=== PATIENT | male | born 1995 | race Caucasian/White ===

== ENCOUNTER 2018-09-04 20:38 | Inpatient (IN) | payer OTHER ==
[~2018-09-04] VITALS: Ht 180.3 cm; Wt 84.8 kg
[2018-09-04 20:45] VITALS: BP 135/66
--- NOTE | 2018-09-04 20:49 | NUR ---
PT TAKEN TO BED 3
--- NOTE | 2018-09-04 20:55 | NUR ---
PT BIB GIRLFRIEND C/O RECTAL BLEEDING. PT STATES INTERMITTENT RECTAL BLEEDING X4 DAYS, BRIGHT RED, BLEEDING CONTROLLED AT THIS TIME. PT STATES PAIN IS 10/10 CONSTANT AND SHARP. LBM: 09/03/18, WNL. +NAUSEA, +VOMITING. PT IN BED; BED IN LOWER LOCKED POSITION. PENDING ER MD MENA. WILL CONTINUE TO MONITOR. PMH: DIVERTICULITIS RX: PREPERATION H W/O RELIEF
--- NOTE | 2018-09-04 21:13 | NUR ---
Dr. Leung evaluating patient at bedside.
[2018-09-04 21:31] LABS: BASOPHILS % (AUTO) 0.5 % (0.0-2.0); EOSINOPHILS # (AUTO) 0.1 K/uL (0-0.4); EOSINOPHILS % (AUTO) 0.9 % (0.0-4.0); HEMOGLOBIN 14.6 g/dL (12.0-18.0); LYMPHOCYTES # (AUTO) 2.8 K/uL (2.0-11.5); LYMPHOCYTES % (AUTO) 27.6 % (20.5-51.1); MEAN CORPUSCULAR HEMOGLOBIN 32 pg (27-31); MEAN CORPUSCULAR HGB CONC 34 g/dL (33-37); MEAN CORPUSCULAR VOLUME 94.3 fL (80-94); MONOCYTES # (AUTO) 0.6 K/uL (0.8-1.0); NEUTROPHILS # (AUTO) 6.6 K/uL (1.8-7.7); PLATELET COUNT (AUTO) 259 K/uL (140-450); RED BLOOD CELL COUNT(AUTO) 4.56 MIL/uL (4.20-6.10); RED CELL DISTRIBUTION WIDTH 14.2 % (11.6-13.7); WHITE BLOOD COUNT (AUTO) 10.1 K/uL (4.8-10.8)
[2018-09-04 21:41] LABS: ANION GAP 9.2 (8-16); CREATININE 1.1 mg/dL (0.7-1.3); POTASSIUM 4.2 mmol/L (3.5-5.1)
--- NOTE | 2018-09-04 21:45 | NUR ---
PT TAKEN TO CT VIA GURNEY BY TECH.
[2018-09-04 21:47] LABS: ALBUMIN 3.9 g/dL (3.4-5.0); TOTAL BILIRUBIN 0.2 mg/dL (0.0-1.0)
[2018-09-04] MEDS ORDERED: MORPHINE SULFATE 4 MG/ML SYR IVP ONE ×2 (21:50→22:35)
--- NOTE | 2018-09-04 21:52 | NUR ---
PT RETURN FROM CT
--- NOTE | 2018-09-04 22:00 | NUR ---
IV START: L AC 20G, FLUSHED WELL W/O RESISTANCE. NO REDNESS OR SWELLING NOTED TO SIGHT. TRANSPARENT DRESSING APPLIED. PT TOLERATED WELL.
[2018-09-04] MEDS ORDERED: NACL 0.9% 1,000 ML IV ONE (22:35)
[2018-09-04] MEDS ORDERED: DENIES HOME MEDS (23:14)
--- NOTE | 2018-09-04 23:22 | NUR ---
Admited to Med-Surg. Patient went to room 119 via wheelchair by RN, patient pain 02/14, floor nurse aware. Belongings list completed. Report to SOFI Leyva and SOFI Wayne.
--- NOTE | 2018-09-04 23:30 | NUR ---
PT ARRIVED AT UNIT VIA WHEELCHAIR, PT AMBULATED TO BED, TOLERATED WELL, PT ON ROOM AIR, NO SOB, NOTED, IV TO L AC 20G PATENT, INTACT, SL. SKIN INTACT, WARM AND DRY TO TOUCH. ALL BELONGING WITH SECURITY, ORIENT PT TO ROOM, MRSA SWAB TAKEN, INITIAL ASSESSMENT DONE, ALL SAFETY PRECAUTION MET. WILL CONTINUE TO MONITOR.
[2018-09-04] MEDS ORDERED: MAG SULF 2000 MG/WATER PREMIX 50 ML IV PRN (23:45)
[2018-09-04] MEDS ORDERED: guaiFENesin DM 200/20 MG-10 ML 10 ML UDC PO PRN (23:45)
[2018-09-04] MEDS ORDERED: MAGNESIUM OXIDE 400 MG TAB PO PRN (23:45)
[2018-09-04] MEDS ORDERED: HYDROcodone/APAP 5/325 MG 1 TAB TAB PO PRN ×2 (23:45)
[2018-09-04] MEDS ORDERED: SODIUM PHOSPHATE 118 ML ENEM RC PRN (23:45)
[2018-09-04] MEDS ORDERED: BISACODYL 10 MG SUPP RC PRN (23:45)
[2018-09-04] MEDS ORDERED: cloNIDine 0.1 MG TAB PO PRN (23:45)
[2018-09-04] MEDS ORDERED: MORPHINE SULFATE 2 MG/ML SYR IVP PRN (23:45)
[2018-09-04] MEDS ORDERED: ALBUTEROL 0.083% 2.5 MG/3 ML NEBU INH PRN (23:45)
[2018-09-04] MEDS ORDERED: diphenhydrAMINE 50 MG/ML VIAL IVP PRN (23:45)
[2018-09-04] MEDS ORDERED: ONDANSETRON 4 MG/2 ML VIAL IVP PRN (23:45)
[2018-09-04] MEDS ORDERED: ACETAMINOPHEN 325 MG TAB PO PRN (23:45)
[2018-09-04] MEDS ORDERED: ZOLPIDEM 5 MG TAB PO PRN (23:45)
[2018-09-04] MEDS ORDERED: POTASSIUM CHLORIDE 40 MEQ, LIDOCAINE 1% 25 MG in NACL 0.9% 250 ML IV PRN (23:45)
[2018-09-04] MEDS ORDERED: IPRATROPIUM 0.02% 0.5 MG/2.5 ML NEBU INH PRN (23:45)
[2018-09-04] MEDS ORDERED: POTASSIUM CHLORIDE 10 MEQ TABER PO PRN (23:45)
[2018-09-04] MEDS ORDERED: DOCUSATE SODIUM 250 MG GELCAP PO PRN (23:45)
[2018-09-04] MEDS ORDERED: ACETAMINOPHEN 650 MG SUPP RC PRN (23:45)
[2018-09-05] VITALS: BP 138/75
[2018-09-05] MEDS: HYDROmorphone 1 MG/ML AMP IVP PRN ×5 (00:26→21:56)
--- NOTE | 2018-09-05 00:26 | NUR ---
PT C/O LOWER ABD AND ANUS PAIN, 0/10. DILAUDID GIVEN PRN ORDERED. PT TOLERATED WELL. WILL CONTINUE TO MONITOR.
--- NOTE | 2018-09-05 02:21 | NUR ---
PT AWAKE. NO S/S OF ANY DISCOMFORT. DENIES PAIN. RESPIRATION EVEN AND UNLABORED.
--- NOTE | 2018-09-05 04:31 | NUR ---
PT SLEEPING IN BED. NO SOB OR ANY RESPIRATORY DISTRESS NOTED. CALL LIGHT WITHIN REACH. WILL CONTINUE TO MONITOR.
[2018-09-05 06:30] LABS: BASOPHILS # (AUTO) 0.1 K/uL (0.00-0.22); BASOPHILS % (AUTO) 0.8 % (0.0-2.0); EOSINOPHILS # (AUTO) 0.2 K/uL (0-0.4); HEMATOCRIT 42.9 % (36-52); HEMOGLOBIN 14.6 g/dL (12.0-18.0); LYMPHOCYTES # (AUTO) 2.6 K/uL (2.0-11.5); LYMPHOCYTES % (AUTO) 32.7 % (20.5-51.1); MEAN CORPUSCULAR HEMOGLOBIN 32 pg (27-31); MEAN CORPUSCULAR HGB CONC 34 g/dL (33-37); MEAN CORPUSCULAR VOLUME 94.1 fL (80-94); MONOCYTES # (AUTO) 0.5 K/uL (0.8-1.0); MONOCYTES % (AUTO) 6.7 % (1.7-9.3); NEUTROPHILS # (AUTO) 4.5 K/uL (1.8-7.7); NEUTROPHILS % (AUTO) 57.8 % (42.2-75.2); PLATELET COUNT (AUTO) 226 K/uL (140-450); RED BLOOD CELL COUNT(AUTO) 4.55 MIL/uL (4.20-6.10); RED CELL DISTRIBUTION WIDTH 14.1 % (11.6-13.7); WHITE BLOOD COUNT (AUTO) 7.8 K/uL (4.8-10.8)
--- NOTE | 2018-09-05 07:29 | NUR ---
ENDORSED PT TO DAY SHIFT NURSE TRAE FARAH, PT STABLE, NO DISTRESS NOTED, CALL LIGHT WITHIN REACH.
--- NOTE | 2018-09-05 07:30 | NUR ---
RECEIVED REPORT FROM COMPENSATION SUPERVISOR NURSE EDUARDO AT BEDSIDE FOR CONTINUITY OF CARE. PT IN STABLE CONDITION. RESPIRATIONS EVEN AND UNLABORED. ROOM AIR. IV INTACT AND PATENT. SAFETY MEASURES IN PLACE. CALL LIGHT AT BEDSIDE. BED IN LOW POSITION. WILL CONTINUE TO MONITOR.
--- NOTE | 2018-09-05 07:58 | NUR ---
PATIENT HAS BEEN SCREENED AND CATEGORIZED MODERATE NUTRITION RISK. PATIENT WILL BE SEEN WITHIN 3-5 DAYS OF ADMISSION. 09/07/18CONSTANCE MAJ[address]
[2018-09-05 08:00] VITALS: BP 119/67
--- NOTE | 2018-09-05 08:30 | NUR ---
YAYA BARILLAS DR. HYDROCORTISONE SUPPOSITORY.
[2018-09-05] MEDS ORDERED: HYDROCORTISONE 100 MG/60 ML RC ONE (08:50)
[2018-09-05] MEDS ORDERED: HYDROCORTISONE SUPPOSITORY 25 MG SUPP RC SCH (09:30)
--- NOTE | 2018-09-05 09:41 | NUR ---
GAVE ANCORT HS SUPPOSITORY, PT TOLERATED WELL. WILL CONTINUE TO MONITOR.
--- NOTE | 2018-09-05 11:20 | NUR ---
PT LYING IN BED IN STABLE CONDITION. RESPIRATIONS EVEN AND UNLABORED. FRIEND AT BEDSIDE. BED IN LOW POSITION. CALL LIGHT AT BEDSIDE. WILL CONTINUE TO MONITOR.
[2018-09-05] MEDS: DEXT 5% /NACL 0.9% 1,000 ML IV SCH (12:20)
[2018-09-05] MEDS: SENNA 8.6 MG TAB PO SCH ×2 (13:14→17:57)
[2018-09-05] MEDS: LORazepam 2 MG/ML VIAL IVP PRN (13:15)
--- NOTE | 2018-09-05 13:15 | NUR ---
GAVE ATIVAN 0.5 MG FOR ANXIETY, COLACE FOR STOOL SOFTENER. PT TOLERATED WELL.
[2018-09-05] MEDS ORDERED: BOWEL EVACUANT DRINK 4,000 ML PDS PO SCH (15:00)
[2018-09-05 16:00] VITALS: BP 126/71
--- NOTE | 2018-09-05 19:19 | NUR ---
RECEIVED PT FROM AM SHIFT NURSE AT BEDSIDE. PT A,A0 X4. PT AMBULATORY. PT ABLE TO MAKE NEEDS KNOWN. WITH GOLYTELY AT BEDISDE ALMOST EMPTY. PT HAS NO BM YET AT THIS TIME. PT WAS GIVEN PAIN MED AT 1751 BECAUSE OF RECTAL PAIN. W/ D5NS AT 70 ML/HR L AC G 20 INFUSING WELL.FRIEND AT BEDSIDE. BED AT LOWEST POSITION, POC REVIEWED. CALL LIGHT W/IN EASY REACH.
--- NOTE | 2018-09-05 20:04 | NUR ---
TALKED TO DR. ATWOOD FOR DR. SKY.DR. ATWOOD ORDERED TO FINISH UP THE GOLYTELY ANOTHER 1999ML
[2018-09-05] MEDS ORDERED: BOWEL EVACUANT DRINK 4,000 ML PDS PO ONE (20:25)
[2018-09-05] MEDS: LACTULOSE 20 GM/30 ML UDC PO SCH (20:43)
--- NOTE | 2018-09-05 20:43 | NUR ---
ADMINISTERED MEDS AND STOOL SOFTENER. PT INFORMED TO TAKE THE GOLYTELY 2000ML ORDERED BY DR. ATWOOD.PT REQUESTED TO DRINK IT LATER. EXPLAINED THE RISKS AND BENEFITS.
--- NOTE | 2018-09-05 20:48 | NUR ---
PT HAD A LARGE BOWEL MVT. CLEAR, LIQUID IN FORM.
[2018-09-05] MEDS ORDERED: MAGNESIUM CITRATE 300 ML BTL PO SCH (21:00)
--- NOTE | 2018-09-05 21:57 | NUR ---
PT C/O PAIN ON RECTUM 02/14, WILL ADMINISTER PAIN MEDS ORDERED PRN
--- NOTE | 2018-09-05 23:01 | NUR ---
PT HAD A TOTAL OF 4 BOWEL MVTS OF NOW. CLEAR LIQUID IN FORM
[2018-09-06] VITALS: BP 111/64
--- NOTE | 2018-09-06 01:02 | NUR ---
STARTED A NEW LINE ON THE RIGHT AC G 20, PT ACCIDENTALLY PULLED THE LEFT AC LINE EARLIER WHILE AMBULATING W/ THE IV POLE TO THE BATHROOM
[2018-09-06] MEDS: DEXT 5% /NACL 0.9% 1,000 ML IV SCH ×3 (01:25→23:03)
--- NOTE | 2018-09-06 01:27 | NUR ---
LAST STOOL WAS BROWNISH IN COLOR, LIQUID IN FORM, LARGE IN AMOUNT. PATIENT'S STOOL NOT CLEAR YET. WILL CONTINUE TO ENCOURAGE TO DRINK. PT IS REFUSING AT THIS TIME TO DRINK THE REMAINING GOLYTELY APPROX 1000ML.
--- NOTE | 2018-09-06 01:27 | NUR ---
PT HAD A TOTAL OF 6 BM AT THIS MOMENT, LIQUID STOOL, W/ BROWNISH COLOR. CONTINUED THE GOLYTELY
--- NOTE | 2018-09-06 03:52 | NUR ---
PT ENCOURAGED TO DRINK AROUND 1000 ML GOLYTELY LEFT. HE SAID HE COULD NOT TOLERATE IT ANYMORE. WILL INFORM CHARGE NURSE.
[2018-09-06 04:00] VITALS: BP 112/65
--- NOTE | 2018-09-06 05:41 | NUR ---
PT AGAIN REMINDED TO DRINK THE REMAINING 100 ML OF GOLYTELY, PT SAID HE IS SLEEPY. INFORMED PT POSSIBILITY TO RESCHEDULE IF STOOLS ARE NOT CLEAR.
--- NOTE | 2018-09-06 06:42 | NUR ---
PT ASLEEP IN BED, AROUSABLE BY NAME,0 X 4, PT IN STABLE CONDITION, STILL W/ UNCLEAR STOOLS. WILL ENDORSE TO NEXT SHIFT FOR CONTINUITY OF CARE.
--- NOTE | 2018-09-06 07:15 | NUR ---
PATIENT LYING DOWN IN BED SLEEPING, AROUSABLE BY VOICE. NO DISTRESS NOTED. PAIN WITHIN TOLERABLE AT THIS TIME. AAOX4, CALM, COOPERATIVE, SKIN COLOR APPROPRIATE TO ETHNICITY, WARM TO TOUCH. SKIN INTACT. IV SITE INTACT, PATENT, AND INFUSING IVF PER MD ORDERS. RESPIRATIONS EVEN, UNLABORED, ON ROOM AIR. ABDOMEN SOFT, NON-DISTENDED. REVIEWED PLAN OF CARE WITH PATIENT. PATIENT VERBALIZED UNDERSTANDING. SAFETY MEASURES IN PLACE, CALL LIGHT WITHIN REACH. WILL CONTINUE TO MONITOR.
[2018-09-06 08:00] VITALS: BP 107/74
[2018-09-06] MEDS: HYDROmorphone 1 MG/ML AMP IVP PRN ×2 (08:09→12:44)
[2018-09-06] MEDS: SENNA 8.6 MG TAB PO SCH ×2 (08:14→12:43)
[2018-09-06] MEDS: LACTULOSE 20 GM/30 ML UDC PO SCH (08:14)
--- NOTE | 2018-09-06 08:20 | NUR ---
PATIENT COMPLAINS OF PAIN ON RECTAL AREA. DILAUDID GIVEN PER MD ORDERS. OTHER SCHEDULED MEDICATIONS DUE GIVEN. WILL CONTINUE TO MONITOR.
--- NOTE | 2018-09-06 10:00 | NUR ---
ESCORTED PATIENT TO SHOWER ROOM. WILL CONTINUE TO MONITOR WHEN PATIENT DONE WITH SHOWER.
[2018-09-06 10:02] LABS: PROTHROMBIN TIME 10.4 secs (10.8-13.4)
--- NOTE | 2018-09-06 11:30 | NUR ---
PATIENT WALKING AROUND MST HALLWAYS WITH STEADY GAIT. WILL CONTINUE TO MONITOR.
--- NOTE | 2018-09-06 12:18 | NUR ---
PATIENT LYING DOWN IN BED SLEEPING, AROUSABLE BY VOICE. NO DISTRESS NOTED. DENIES ANY PAIN. WILL CONTINUE TO MONITOR.
--- NOTE | 2018-09-06 14:40 | NUR ---
OR NURSES ON UNIT TO TAKE PATIENT FOR COLONSCOPY. WILL CONTINUE TO MONITOR WHEN PATIENT RETURNS.
[2018-09-06] MEDS ORDERED: MIDAZOLAM 2 MG/2 ML VIAL ONE ×2 (14:44→18:15)
[2018-09-06] MEDS ORDERED: diphenhydrAMINE 50 MG/ML VIAL ONE (14:44)
[2018-09-06] MEDS ORDERED: fentaNYL 0.05 MG/ML VIAL ONE ×2 (14:44→18:15)
--- NOTE | 2018-09-06 15:15 | NUR ---
PATIENT BACK FROM COLONOSCOPY. NO DISTRESS NOTED. PAIN WITHIN TOLERABLE AT THIS TIME. V/S STABLE. WILL CONTINUE TO MONITOR.
[2018-09-06] MEDS ORDERED: fentaNYL 0.05 MG/ML VIAL IVP ONE (15:50)
[2018-09-06] MEDS ORDERED: MIDAZOLAM 2 MG/2 ML VIAL IVP ONE (15:50)
[2018-09-06 16:00] VITALS: BP 115/66
--- NOTE | 2018-09-06 17:30 | NUR ---
PATIENT SITTING IN BED TALKING WITH FRIEND AT BEDSIDE. NO DISTRESS NOTED. PAIN WITHIN TOLERABLE. WILL CONTINUE TO MONITOR.
[2018-09-06] MEDS ORDERED: DEXAMETHASONE 4 MG/ML VIAL ONE (17:55)
[2018-09-06] MEDS ORDERED: SEVOFLURANE 250 ML BTL INH ONE (17:55)
[2018-09-06] MEDS ORDERED: ONDANSETRON 4 MG/2 ML VIAL ONE (17:55)
[2018-09-06] MEDS ORDERED: KETOROLAC 30 MG/ML VIAL ONE (17:55)
[2018-09-06] MEDS ORDERED: ceFAZolin 1,000 MG VIAL ONE (17:55)
[2018-09-06] MEDS ORDERED: PROPOFOL 200 MG/20 ML VIAL IV ONE (17:55)
--- NOTE | 2018-09-06 18:00 | NUR ---
OR NURSES ON UNIT READY TO TAKE PATIENT FOR HEMMORHOIDECTOMY. WILL CONTINUE TO MONITOR WHEN PATIENT RETURNS ON UNIT.
[2018-09-06] MEDS: LACTATED RINGERS 1,000 ML IV SCH (18:02)
[2018-09-06] MEDS ORDERED: ONDANSETRON 4 MG/2 ML VIAL IVP PRN (18:05)
[2018-09-06] MEDS ORDERED: diphenhydrAMINE 50 MG/ML VIAL IVP PRN (18:05)
[2018-09-06] MEDS ORDERED: HYDROmorphone 1 MG/ML AMP IVP PRN (18:05)
[2018-09-06] MEDS ORDERED: MEPERIDINE 25 MG/ML SYR IVP PRN (18:05)
[2018-09-06] MEDS ORDERED: GELATIN SPONGE 100 1 SPG TP ONE (18:07)
[2018-09-06] MEDS ORDERED: BUPIVACAINE-MPF 0.25% 30 ML VIAL INJ ONE (18:07)
[2018-09-06] MEDS ORDERED: MEPERIDINE 50 MG/ML SYR ONE (18:15)
--- NOTE | 2018-09-06 19:14 | NUR ---
GAVE REPORT TO ORE MINER NURSE FOR CONTINUITY OF CARE. PATIENT CURRENTLY IN OR FOR HEMORRHOIDECTOMY
--- NOTE | 2018-09-06 19:15 | NUR ---
RECEIVED BEDSIDE REPORT FROM AM SHIFT NURSE . PT STILL AT OR FOR HEMMORHOIDECTOMY.
[2018-09-06 20:20] VITALS: BP 138/81
--- NOTE | 2018-09-06 20:20 | NUR ---
RECEIVED FROM OR, VIA GURNEY. PATIENT AWAKE, ALERT AMBULATORY AND PT NOT IN RESPIRATORY DISTRESS. PT SAID HE FEELS PAIN AT THIS TIME. OR NURSE SAID HE HAD MEDS GIVEN JUST RECENTLY AT THE OR. PT NO VOMITING. POC DISCUSSED WILL CONTINUE TO MONITOR.
--- NOTE | 2018-09-06 20:39 | NUR ---
PT REQUESTED ON HAVING HIS GF OVER. WAS INFORMED THAT PER HOSPITAL'S PROTOCOL WE CANNOT LET HER STAY OVERNIGHT. PT GOT ANXIOUS AND INSISTED AND DEMANDED A DISCHARGE RIGHT AWAY. PT EXPLAINED THE RISKS AND BENEFITS OF AMA.
--- NOTE | 2018-09-06 20:40 | NUR ---
PT C/O OF PAIN, RECTAL AND WAS INFORMED THAT HE JUST HAD RECENT PAIN MEDS AT OR, HIGH DOSE. PT DIFFICULT AND ANXIOUS AT THIS TIME. WILL CONTINUE TO MONITOR ANXIETY
[2018-09-06] MEDS: LORazepam 2 MG/ML VIAL IVP PRN (21:45)
--- NOTE | 2018-09-06 21:47 | NUR ---
PT 9/10 PAIN RECTAL, GIVEN DILAUDID ORDERED.
--- NOTE | 2018-09-06 21:48 | NUR ---
SUMIT ANTI ANXIETY ORDERED. ALSO PT REQUESTED IT.
[2018-09-06] MEDS: DOCUSATE SODIUM 250 MG GELCAP PO SCH (23:00)
--- NOTE | 2018-09-06 23:01 | NUR ---
JUST GIVEN COLACE. PT REQUESTED TO HOLD IT FOR A WHILE AT 2100.
[2018-09-07] MEDS: LACTATED RINGERS 1,000 ML IV SCH ×2 (02:22→10:42)
[2018-09-07] MEDS: ALUMINUM HYD/MAG/SIMETHICONE 30 ML UDC PO PRN ×2 (02:37→08:31)
--- NOTE | 2018-09-07 02:47 | NUR ---
PT C/O OF GAS PAIN, GIVEN MAALOX ORDERED
[2018-09-07 04:00] VITALS: BP 101/50
--- NOTE | 2018-09-07 07:15 | NUR ---
RECEIVED REPORT FROM SECRETARY SPECIALIST NURSE. PATIENT IS RESTING IN BED. RESPIRATIONS ARE EVEN AND UNLABORED. IV INTACT, PATENT, AND INFUSING IVF. NO C/O OF PAIN AT THIS TIME. PATIENT IS ALERT AWAKE AND ORIENTED X4. FAMILY IS PRESENT AT THE BEDSIDE. REVIEWED PLAN OF CARE WITH PATIENT. PATIENT VERBALIZED UNDERSTANDING. SAFETY MEASURES IN PLACE, BED IS LOW, SIDE RAILS X2, AND CALL LIGHT IS WITHIN REACH. WILL CONTINUE TO MONITOR.
[2018-09-07] MEDS: DOCUSATE SODIUM 250 MG GELCAP PO SCH (08:21)
[2018-09-07] MEDS: HYDROmorphone 1 MG/ML AMP IVP PRN ×3 (08:22→16:22)
--- NOTE | 2018-09-07 08:30 | NUR ---
PATIENT LYING DOWN IN BED. COMPLAINS OF PAIN AND ANXIETY. DILAUDID AND ATIVAN GIVEN AT THIS TIME. OTHER SCHEDULED MEDICATIONS DUE GIVEN. LUBRICANT MEDICATION NOT GIVEN PATIENT IS BACK ON MST UNIT. WILL CONTINUE TO MONITOR.
[2018-09-07] MEDS: LORazepam 2 MG/ML VIAL IVP PRN ×2 (08:32→12:38)
[2018-09-07] MEDS ORDERED: [UNRECOGNIZED DRUG - OTHER] MC SCH (09:00)
[2018-09-07 09:25] LABS: BASOPHILS # (AUTO) 0.1 K/uL (0.00-0.22); BASOPHILS % (AUTO) 0.5 % (0.0-2.0); EOSINOPHILS % (AUTO) 0.1 % (0.0-4.0); HEMOGLOBIN 13.9 g/dL (12.0-18.0); LYMPHOCYTES # (AUTO) 1.6 K/uL (2.0-11.5); LYMPHOCYTES % (AUTO) 14.8 % (20.5-51.1); MEAN CORPUSCULAR HEMOGLOBIN 31 pg (27-31); MEAN CORPUSCULAR HGB CONC 33 g/dL (33-37); MEAN CORPUSCULAR VOLUME 94.5 fL (80-94); MONOCYTES # (AUTO) 0.8 K/uL (0.8-1.0); MONOCYTES % (AUTO) 7.4 % (1.7-9.3); NEUTROPHILS # (AUTO) 8.5 K/uL (1.8-7.7); NEUTROPHILS % (AUTO) 77.2 % (42.2-75.2); PLATELET COUNT (AUTO) 210 K/uL (140-450); RED BLOOD CELL COUNT(AUTO) 4.44 MIL/uL (4.20-6.10)
--- NOTE | 2018-09-07 11:40 | NUR ---
ENCOURAGED PATIENT TO AMBULATE TO DECREASE STOMACH DISCOMFORT. WILL CONTINUE TO MONITOR.
--- NOTE | 2018-09-07 12:00 | NUR ---
PATIENT AMBULATING AROUND MST HALLWAYS WITH STEADY GAIT. WILL CONTINUE TO MONITOR.
--- NOTE | 2018-09-07 12:40 | NUR ---
PATIENT SITTING IN BED WITH COMPLAINTS OF PAIN AND ANXIOUS. DILAUDID AND ATIVAN GIVEN PER MD ORDERS. WILL CONTINUE TO MONITOR.
[2018-09-07] MEDS ORDERED: ACET-5636 PO (13:49)
[2018-09-07] MEDS ORDERED: DOCU-299 PO (13:49)
--- NOTE | 2018-09-07 15:30 | NUR ---
PATIENT LYING DOWN IN BED. PAIN WITHIN TOLERABLE AT THIS TIME. CONDITION UNCHANGED. WILL CONTINUE TO MONITOR.
--- NOTE | 2018-09-07 16:30 | NUR ---
DISCHARGE INSTRUCTIONS PROVIDED TO PATIENT/FIANCE AT BEDSIDE IN PREFERRED LANGUAGE OF CROATIAN. INSTRUCTIONS ON FOLLOW-UP VISIT WITH SURGEON AND PCP PROVIDED, NEW MEDICATIONS REGIMEN AND SIDE EFFECTS, DIET REGIMEN, AND PAIN MANAGEMENT. ANSWERED ALL OF PATIENT/FIANCE'S QUESTIONS. PATIENT/FIANCE VERBALIZED COMPLETE UNDERSTANDING. PATIENT TO GO HOME AFTER DINNER. WILL CONTINUE TO MONITOR.
[2018-09-07] MEDS: DEXT 5% /NACL 0.9% 1,000 ML IV SCH (16:40)
--- NOTE | 2018-09-07 16:50 | NUR ---
PATIENT ALL DRESSED. ALL BELONGINGS WITH PATIENT. PATIENT WANTS TO GO HOME NOW. IV SITE REMOVED WITH MINIMAL BLOOD AND LUMEN COMPLETELY INTACT. ID BANDS REMOVED. ESCORTED PATIENT DOWN TO LOBBY VIA STEADY AMBULATION. PATIENT DISCHARGED TO HOME IN PRIVATE VEHICLE AT THIS TIME IN STABLE CONDITION.
== END 2018-09-07 16:50 | disposition home or self-care (01) | DRG 226 ==
LOC: MED 20:38 → MTU 23:02 → OBSVTOIN 09-05 11:00
PROVIDERS: ADMIT Internal Medicine Pulmonary Disease; ATTEND Internal Medicine Pulmonary Disease
PROC: 0DJD8ZZ Inspection of Lower Intestinal Tract, Via Natural or Artificial Opening Endoscopic (ICD-10-PCS; 2018-09-06)
PROC: 06BY0ZC Excision of Hemorrhoidal Plexus, Open Approach (ICD-10-PCS; principal; 2018-09-06 10:00)
DX: K64.5 Perianal venous thrombosis (principal); Q43.8 Other specified congenital malformations of intestine; K51.911 Ulcerative colitis, unspecified with rectal bleeding; K64.8 Other hemorrhoids; K59.00 Constipation, unspecified; K64.4 Residual hemorrhoidal skin tags; Z87.891 Personal history of nicotine dependence; Z68.26 Body mass index [BMI] 26.0-26.9, adult
CPT/HCPCS: 45378; 96361; 96374; 96375; 99285; G0378; 36415; 80048; 80053; 85025; 85610; 85730; 87081; 88304; 88313; 88342; J0690; J1100; J1170; J1200; J1885; J2060; J2175; J2250; J2270; J2405; J2704; J3010; J3490; J7030; J7042

== ENCOUNTER 2018-09-09 07:17 | Emergency (ER) | payer OTHER ==
[~2018-09-09] VITALS: Ht 177.8 cm; Wt 85.3 kg
[~2018-09-09 07:17] MED LIST: ACET-5636 PO; DENIES HOME MEDS; DOCU-299 PO
--- NOTE | 2018-09-09 07:17 | NUR ---
PATIENT BIBA TO ER BED 4.
--- NOTE | 2018-09-09 07:17 | NUR ---
DR. PINON AT BEDSIDE EVALUATING PATIENT.
[2018-09-09 07:18] VITALS: BP 124/85
--- NOTE | 2018-09-09 07:19 | NUR ---
23 Y MALE KEYUR C/O RECTAL PAIN 02/14. PT SEEN AT [facility] FOR A COLONOSCOPY/HEMORROIDECTOMY COUPLE DAYS AGO. PT STATES HE HAS BEEN TAKING PRESCRIBED MEDICATIONS WITH NO RELIEF. DENIES AB PAIN AT THIS TIME. -N/V. LAST BM YESTERDAY STRAINED. PT STATES HE HAS HAD RECTAL BLEEDING "GEL-LIKE". VSS AT THIS TIME. AA0X4. BED IS DOWN, LOCKED, BED RAIL X 1, ERMD TO SEE PT. PMH- WRIST SURGERY
[2018-09-09] MEDS ORDERED: NACL 0.9% 1,000 ML IV ONE (07:25)
[2018-09-09] MEDS ORDERED: MORPHINE SULFATE 4 MG/ML SYR IVP ONE (07:25)
[2018-09-09] MEDS ORDERED: DICYCLOMINE 20 MG/2 ML VIAL IM ONE (07:25)
[2018-09-09] MEDS ORDERED: ONDANSETRON 4 MG/2 ML VIAL IVP ONE (07:25)
--- NOTE | 2018-09-09 08:00 | NUR ---
PT BEING TAKEN TO CT
--- NOTE | 2018-09-09 08:29 | NUR ---
pt returned from ct
[2018-09-09 09:22] VITALS: BP 118/63
--- NOTE | 2018-09-09 09:22 | NUR ---
Patient discharged with v/s stable. Written and verbal after care instructions given and explained. Patient alert, oriented and verbalized understanding of instructions. Ambulatory with steady gait. All questions addressed prior to discharge. ID band removed. Patient advised to follow up with PMD. Rx of madeleine champion given. Patient educated on indication of medication including possible reaction and side effects. Opportunity to ask questions provided and answered.
== END 2018-09-09 09:22 | disposition home or self-care (01) ==
LOC: MED 07:17
DX: K62.89 Other specified diseases of anus and rectum (principal); Z79.899 Other long term (current) drug therapy
CPT/HCPCS: 74176; 96372; 96374; 96375; 99284; J0500; J2270; J2405; J7030

== ENCOUNTER 2018-09-10 06:58 | Inpatient (IN) | payer OTHER ==
[~2018-09-10] VITALS: Ht 180.3 cm; Wt 85.7 kg
[2018-09-10 06:58] VITALS: BP 147/56
--- NOTE | 2018-09-10 06:58 | NUR ---
PT KEYUR DUENASS. TAKEN TO BED 4
--- NOTE | 2018-09-10 06:58 | NUR ---
PT PRESENTS TO ED WITH C/O SEVERE BILAT LOWER ABD PAIN/RECTAL PAIN AND BLEEDING X12 HRS. X4 ABD QUADRANT BOWEL SOUNDS PRESENT. X1 DAY SINCE LAST BM. AT THIS TIME PT STATES PASSING GAS ACCOMPANIED BY BRIGHT RED BLOOD. VSS UPON ED ADDMISSION. A&OX4. POSITIONED IN BED FOR COMFORT WITH SIDE RAILS UP. ER MD AWARE. CONTINUE TO MONITOR.
--- NOTE | 2018-09-10 07:09 | NUR ---
RECIEVED REPORT FROM ARUNA FARAH.
[2018-09-10] MEDS ORDERED: NACL 0.9% 2,000 ML IV SCH (07:30)
[2018-09-10] MEDS ORDERED: LEVOFLOXACIN 500 MG/D5W PREMIX 100 ML IV ONE (07:30)
[2018-09-10] MEDS ORDERED: metroNIDAZOLE 500 MG/NS PREMIX 100 ML IV ONE (07:30)
[2018-09-10] MEDS ORDERED: MORPHINE SULFATE 4 MG/ML SYR IVP ONE (07:30)
[2018-09-10] MEDS ORDERED: diphenhydrAMINE 50 MG/ML VIAL IVP ONE (07:30)
[2018-09-10 08:02] LABS: BASOPHILS # (AUTO) 0.1 K/uL (0.00-0.22); BASOPHILS % (AUTO) 0.6 % (0.0-2.0); EOSINOPHILS # (AUTO) 0.1 K/uL (0-0.4); EOSINOPHILS % (AUTO) 0.6 % (0.0-4.0); HEMATOCRIT 45.9 % (36-52); HEMOGLOBIN 15.7 g/dL (12.0-18.0); LYMPHOCYTES # (AUTO) 1.9 K/uL (2.0-11.5); LYMPHOCYTES % (AUTO) 15.4 % (20.5-51.1); MEAN CORPUSCULAR HEMOGLOBIN 32 pg (27-31); MEAN CORPUSCULAR HGB CONC 34 g/dL (33-37); MEAN CORPUSCULAR VOLUME 93.6 fL (80-94); MONOCYTES # (AUTO) 1.1 K/uL (0.8-1.0); MONOCYTES % (AUTO) 8.9 % (1.7-9.3); NEUTROPHILS # (AUTO) 9.1 K/uL (1.8-7.7); NEUTROPHILS % (AUTO) 74.5 % (42.2-75.2); PLATELET COUNT (AUTO) 292 K/uL (140-450); RED CELL DISTRIBUTION WIDTH 13.8 % (11.6-13.7); WHITE BLOOD COUNT (AUTO) 12.2 K/uL (4.8-10.8)
[2018-09-10 08:15] LABS: ANION GAP 19.2 (8-16); CARBON DIOXIDE 21.4 mmol/L (21-32); CREATININE 1.3 mg/dL (0.7-1.3); POTASSIUM 3.6 mmol/L (3.5-5.1)
[2018-09-10 08:18] LABS: PROTHROMBIN TIME 10.3 secs (10.8-13.4)
[2018-09-10 08:20] LABS: ALBUMIN 4.1 g/dL (3.4-5.0); TOTAL BILIRUBIN 0.6 mg/dL (0.0-1.0)
[2018-09-10] MEDS ORDERED: FAMOTIDINE 20 MG/2 ML VIAL IVP ONE (08:20)
[2018-09-10] MEDS ORDERED: DEXAMETHASONE 10 MG/ML VIAL IVP ONE (08:20)
--- NOTE | 2018-09-10 08:37 | NUR ---
PROVIDED PT WITH URINAL TO PROVIDE URINE SAMPLE AND GAVE PT ICE CHIPS. PT COMPLAINING OF RECTAL PAIN AT 10 AT THIS TIME.
[2018-09-10 08:39] LABS: ACETONE, SERUM NEGATIVE (NEGATIVE)
[2018-09-10 08:44] LABS: AMYLASE 42 U/L (25-115); LIPASE 82 U/L (73-393); MAGNESIUM 1.5 mg/dL (1.8-2.4)
--- NOTE | 2018-09-10 08:45 | NUR ---
RECEIVED REPORT FROM SOFI SIMENTAL FOR TRANSFER OF CARE.
--- NOTE | 2018-09-10 09:00 | NUR ---
PROVIDED BLANKETS FOR PT. AAOX4. ABLE TO VERBALIZE NEEDS. FULL CLEAR SPEECH. NO SIGNS AND SYMPTOMS OF RESPIRATORY DISTRESS NOTED. WILL CONTINUE TO MONITOR.
[2018-09-10] MEDS ORDERED: GLYCOPYRROLATE 0.2 MG/ML VIAL IV ONE (09:35)
[2018-09-10] MEDS ORDERED: KETOROLAC 30 MG/ML VIAL IVP ONE (09:35)
--- NOTE | 2018-09-10 10:00 | NUR ---
PT ASLEEP. EASILY AROUSABLE BY NAME. FULL CLEAR SPEECH. AAO X4. NO SIGNS AND SYMPTOMS OF DISTRESS NOTED. WILL CONTINUE OT MONITOR.
[2018-09-10 10:24] LABS: APPEARANCE,URINE CLEAR (CLEAR); BILIRUBIN,URINE NEGATIVE (NEGATIVE); BLOOD, URINE NEGATIVE (NEGATIVE); COLOR,URINE YELLOW (YELLOW); LEUKOCYTE ESTERASE ,URINE NEGATIVE (NEGATIVE); NITRITE, URINE NEGATIVE (NEGATIVE); UGLUCOSE NEGATIVE (NEGATIVE)
[2018-09-10 10:40] LABS: BARBITURATE, URINE NEG. ng/ml (NEG <=200); BENZODIAZEPINE, URINE NEG. ng/mL (NEG <=200); CANNABINOID, URINE POS. ng/mL (NEG <=50); COCAINE, URINE NEG. ng/mL (NEG <=300); OPIATE, URINE POS. ng/mL (NEG <=2000); PHENCYCLIDINE SCREEN,URINE NEG. ng/mL (NEG <=25)
[2018-09-10 10:47] LABS: RBC,URINE 0-5 /HPF (0-5); WBC,URINE 0-5 /HPF (0-5)
--- NOTE | 2018-09-10 11:15 | NUR ---
PT AAO X4. FULL CLEAR SPEECH. DENIES SOB. WILL CONTINUE TO MONITOR.
[2018-09-10 11:50] VITALS: BP 126/82
--- NOTE | 2018-09-10 11:50 | NUR ---
Patient will be admitted to care of Dr. Giraldo. Admited to Med Surg. Will go to [id number]. Belongings list completed. Report to SOFI Zacarias.
--- NOTE | 2018-09-10 11:50 | NUR ---
RECEIVED REPORT FROM EMERGENCY ROOM NURSE LARRY FOR CONTINUITY OF CARE. PT IN STABLE CONDITION. IV INTACT AND PATENT. SAFETY MEASURES IN PLACE. CALL LIGHT AT BEDSIDE TEACHING DONE. BED IN LOW POSITION. WILL CONTINUE TO MONITOR.
--- NOTE | 2018-09-10 14:15 | NUR ---
PT LYING IN BED IN STABLE CONDITION WATCHING MOVIES ON CELL PHONE. RESPIRATIONS EVEN AND UNLABORED. BED IN LOW POSITION. CALL LIGHT AT BEDSIDE. WILL CONTINUE TO MONITOR.
[2018-09-10 14:17] LABS: BASOPHILS % (AUTO) 0.2 % (0.0-2.0); HEMATOCRIT 39.4 % (36-52); HEMOGLOBIN 13.3 g/dL (12.0-18.0); LYMPHOCYTES # (AUTO) 0.7 K/uL (2.0-11.5); LYMPHOCYTES % (AUTO) 6.2 % (20.5-51.1); MEAN CORPUSCULAR HEMOGLOBIN 32 pg (27-31); MEAN CORPUSCULAR HGB CONC 34 g/dL (33-37); MEAN CORPUSCULAR VOLUME 93.5 fL (80-94); MONOCYTES # (AUTO) 0.3 K/uL (0.8-1.0); MONOCYTES % (AUTO) 2.5 % (1.7-9.3); NEUTROPHILS # (AUTO) 10.8 K/uL (1.8-7.7); NEUTROPHILS % (AUTO) 91.1 % (42.2-75.2); PLATELET COUNT (AUTO) 236 K/uL (140-450); RED BLOOD CELL COUNT(AUTO) 4.21 MIL/uL (4.20-6.10); RED CELL DISTRIBUTION WIDTH 13.8 % (11.6-13.7); WHITE BLOOD COUNT (AUTO) 11.9 K/uL (4.8-10.8)
--- NOTE | 2018-09-10 16:29 | NUR ---
PT LYING IN BED WITH FAMILY AT BEDSIDE. RESPIRATIONS EVEN AND UNLABORED. BED IN LOW POSITION. CALL LIGHT AT BEDSIDE. WILL CONTINUE TO MONITOR.
--- NOTE | 2018-09-10 19:25 | NUR ---
RECEIVED BEDSIDE REPORT FROM DAY SHIFT NURSE. PATIENT AWAKE, ALERT, AND COOPERATIVE. RESPIRATION EVEN UNLABORED ON ROOM AIR. NO DISTRESS NOTED. SKIN IS WARM AND DRY. IV PATENT AND INTACT. ABLE TO MAKE NEEDS KNOWN. PLAN OF CARE WAS DISCUSSED. BED IS AT LOW POSITION. CALL LIGHT WITHIN REACH AND ABLE TO VERBALIZES ITS USE.
--- NOTE | 2018-09-10 19:25 | NUR ---
GAVE REPORT TO JAVA APPLICATION DEVELOPER NURSE KISSKRISTY FOR CONTINUITY OF CARE. PT IN STABLE CONDITION.
--- NOTE | 2018-09-10 20:00 | NUR ---
INITIAL ASSESSMENT DONE. VITALS WERE TAKEN. PATIENT CONDITION STABLE WILL CONTINUE TO MONITOR.
--- NOTE | 2018-09-10 21:00 | NUR ---
PATIENT IN BED WATCHING TV RESPIRATION EVEN UNLABORED ON ROOM AIR. NO DISTRESS NOTED. WILL CONTINUE TO MONITOR
[2018-09-10] MEDS ORDERED: HYDROcodone/APAP 5/325 MG 1 TAB TAB PO PRN (21:05)
--- NOTE | 2018-09-10 22:15 | NUR ---
PATIENT COMPLAINED OF RECTUM PAIN 8/10. MINIMAL BLOOD NOTED. PRN PAIN MED ADMINISTERED. WILL CONTINUE TO MONITOR
[2018-09-10] MEDS: MORPHINE SULFATE 4 MG/ML SYR IVP PRN (22:16)
[2018-09-11] VITALS: BP 115/60
--- NOTE | 2018-09-11 | NUR ---
VITALS WERE TAKEN. PATIENT CONDITION STABLE. NO BLEED NOTED IN THE RECTUM AREA. WILL CONTINUE TO MONITOR
[2018-09-11] MEDS: ONDANSETRON 4 MG/2 ML VIAL IVP PRN ×2 (00:40→07:38)
--- NOTE | 2018-09-11 00:40 | NUR ---
PATIENT COMPLAINED OF NAUSEOUS. PRN ANTIEMETIC ADMINISTERED PER ORDER. WILL CONTINUE TO MONITOR
[2018-09-11] MEDS: MORPHINE SULFATE 4 MG/ML SYR IVP PRN ×2 (02:48→07:29)
--- NOTE | 2018-09-11 02:48 | NUR ---
PATIENT COMPLAINED OF 8/10 RECTUM PAIN. PRN PAIN MED ADMINISTERED. WILL CONTINUE TO MONITOR
--- NOTE | 2018-09-11 04:00 | NUR ---
PATIENT SLEEPING RESPIRATION EVEN UNLABORED ON ROOM AIR. NO DISTRESS NOTED. WILL CONTINUE TO MONITOR
--- NOTE | 2018-09-11 05:20 | NUR ---
PATIENT COMPLAINED OF 6/10 RECTUM PAIN. PRN PAIN MED ADMINISTERED PER ORDER. WILL CONTINUE TO MONITOR
--- NOTE | 2018-09-11 07:22 | NUR ---
ENDORSED PATIENT TO DAY SHIFT NURSE. PATIENT CONDITION STABLE.
--- NOTE | 2018-09-11 07:24 | NUR ---
RECEIVED BEDSIDE REPORT FROM GRASS FARMER RN. PT IN STABLE CONDITION. STATES THE RECTAL BLEEDING HAS SUBSIDED GREATLY, BUT STILL BLEEDING. REFUSED VISUAL ASSESSMENT AT THIS TIME. LUNGS CTA. HEART RHYTHM REGULAR. ALL SAFETY PRECAUTIONS IN PLACE, WILL CONTINUE TO MONITOR.
--- NOTE | 2018-09-11 07:38 | NUR ---
ADMINISTERED ZOFRAN FOR PT C/O NAUSEA.
[2018-09-11 08:00] VITALS: BP 120/64
--- NOTE | 2018-09-11 08:31 | NUR ---
PATIENT HAS BEEN SCREENED AND CATEGORIZED MODERATE NUTRITION RISK. PATIENT WILL BE SEEN WITHIN 3-5 DAYS OF ADMISSION. 09/12/18[address]
--- NOTE | 2018-09-11 08:35 | NUR ---
NO C/O N/V, ONE HOUR AFTER ZOFRAN IVP.
--- NOTE | 2018-09-11 08:37 | NUR ---
PATIENT STATES HE WANTS TO LEAVE AMA. STATES A DOCTOR TOLD HIM HE IS OKAY TO GO. NO D/C ORDER FROM DR. CLINE. ATTEMPTED TO CALL OR TO REACH DR. HANCOCK. DR. HANCOCK IS IN SURGERY NOW. DIRECTOR JAVIER SPOKE WITH PATIENT AT BEDSIDE. PATIENT AGREED TO STAY UNTIL DR. CLINE COMES TO SEE PT TODAY.
[2018-09-11 09:20] LABS: BASOPHILS # (AUTO) 0.1 K/uL (0.00-0.22); BASOPHILS % (AUTO) 1.2 % (0.0-2.0); EOSINOPHILS # (AUTO) 0.2 K/uL (0-0.4); EOSINOPHILS % (AUTO) 1.7 % (0.0-4.0); HEMOGLOBIN 13.5 g/dL (12.0-18.0); LYMPHOCYTES # (AUTO) 2.4 K/uL (2.0-11.5); LYMPHOCYTES % (AUTO) 26.5 % (20.5-51.1); MEAN CORPUSCULAR HEMOGLOBIN 32 pg (27-31); MEAN CORPUSCULAR HGB CONC 34 g/dL (33-37); MEAN CORPUSCULAR VOLUME 94.6 fL (80-94); MONOCYTES # (AUTO) 0.7 K/uL (0.8-1.0); MONOCYTES % (AUTO) 7.7 % (1.7-9.3); NEUTROPHILS # (AUTO) 5.8 K/uL (1.8-7.7); NEUTROPHILS % (AUTO) 62.9 % (42.2-75.2); PLATELET COUNT (AUTO) 243 K/uL (140-450); RED BLOOD CELL COUNT(AUTO) 4.23 MIL/uL (4.20-6.10); RED CELL DISTRIBUTION WIDTH 13.9 % (11.6-13.7); WHITE BLOOD COUNT (AUTO) 9.2 K/uL (4.8-10.8)
--- NOTE | 2018-09-11 09:25 | NUR ---
REPORTED H&H VALUES TO DR. CLINE. RECEIVED TORB ORDERS TO D/C PATIENT HOME FOR SELF-CARE, RESUME ALL HOME MEDICATIONS.
--- NOTE | 2018-09-11 09:30 | NUR ---
PT IS ASKING FOR HEMORRHOID CREAM PRESCRIBED BY DR. HANCOCK- STATES PREVIOUS RX DID NOT INCLUDE STRENGTH AND TYPE OF CREAM SO PHARMACY IS UNABLE TO FILL. ATTEMPTED TO REACH DR. HANCOCK- IN SURGERY NOW. GAVE DR. HANCOCK'S OFFICE NUMBER TO PATIENT. ALSO TOOK PATIENT'S CELLPHONE NUMBER- WILL GIVE TO DR. HANCOCK AND ASK DR. HANCOCK TO CALL PATIENT.
--- NOTE | 2018-09-11 09:50 | NUR ---
DISCHARGE PAPERWORK, INCLUDING INSTRUCTIONS TO F/U WITH PCP WITHIN ONE WEEK, GIVEN TO PATIENT. MEDICATION TEACHING AND MEDICATION RECONCILIATION TEACHING GIVEN TO PATIENT. ER PRECAUTIONS GIVEN. PT VERBALIZED COMPLETE UNDERSTANDING OF ALL D/C TEACHING. FLU NOT IN SEASON. PNEUMOVAX NOT INDICATED. IV SITE REMOVED WITH MINIMAL BLOOD LOSS AND LUMEN COMPLETELY INTACT. ID BANDS REMOVED. ALL PERSONAL BELONGINGS ARE WITH PATIENT. PATIENT DISCHARGED AND WILL GO HOME WITH FAMILY MEMBER VIA PRIVATE VEHICLE. Addendum: 09/11/18 at 1038 by Amy Daley Meng, RN PATIENT REFUSED RECTAL ASSESSMENT/DC PHOTO.
--- NOTE | 2018-09-11 12:42 | NUR ---
CALLED [phone] AND LEFT MESSAGE REGARDING HEMORRHOID CREAM. PER DR. HANCOCK, HE DID NOT PRESCRIBE ANY HEMORRHOID CREAM MEDICATION BUT STATES PT CAN USE OTC PREPARATION H. COMMUNICATED THIS TO PT VIA VOICEMAIL MESSAGE.
== END 2018-09-11 09:50 | disposition home or self-care (01) | DRG 245 ==
LOC: MED 06:58 → MTU 10:53
PROVIDERS: ADMIT Internal Medicine Pulmonary Disease; ATTEND Internal Medicine Pulmonary Disease
DX: K50.911 Crohn's disease, unspecified, with rectal bleeding (principal); E87.2 Acidosis; R09.02 Hypoxemia; Z79.899 Other long term (current) drug therapy
CPT/HCPCS: 36415; 36600; 80053; 80305; 81001; 82009; 82140; 82150; 82553; 82803; 83605; 83690; 83735; 83880; 84484; 85025; 85610; 86886; 86900; 86901; 87040; 87081; 87086; 93005; 96361; 96365; 96375; 99285; G0482; J1100; J1200; J1885; J1956; J2270; J2405; J3490

== ENCOUNTER 2018-10-15 00:50 | Emergency (ER) | payer OTHER ==
[~2018-10-15] VITALS: Ht 180.3 cm; Wt 84.4 kg
[~2018-10-15 00:50] MED LIST changes: -DENIES HOME MEDS
[2018-10-15 00:53] VITALS: BP 145/74
--- NOTE | 2018-10-15 01:00 | NUR ---
PT TO ED WITH REQUEST FOR TETANUS VACCINE S/P CONTACT WITH BELINDA NAIL TO L THUMB X 8 HRS AGO. NO ACTIVE BLEEDING. NO OBVIOUS LACERATION NOTED. NO REDNESS, SWELLING, OR S/S OF INFECTION. PT PLACED INTO BED, PENDING MD MENA.
--- NOTE | 2018-10-15 01:00 | NUR ---
PT AMBULATED TO BED #4
[2018-10-15 01:33] VITALS: BP 145/74
--- NOTE | 2018-10-15 01:33 | NUR ---
Patient discharged with v/s stable. Written and verbal after care instructions given and explained. Patient verbalized understanding. Ambulatory with steady gait. All questions addressed prior to discharge. Advised to follow up with PMD.
== END 2018-10-15 01:33 | disposition home or self-care (01) ==
LOC: MED 00:50
DX: S61.012A Laceration without foreign body of left thumb without damage to nail, initial encounter (principal); S61.011A Laceration without foreign body of right thumb without damage to nail, initial encounter; Z79.899 Other long term (current) drug therapy; W45.0XXA Nail entering through skin, initial encounter; Y93.89 Activity, other specified; Y92.89 Other specified places as the place of occurrence of the external cause; Y99.8 Other external cause status
CPT/HCPCS: 90471; 90715; 99283

== ENCOUNTER 2019-02-04 20:20 | Emergency (ER) | payer OTHER ==
[~2019-02-04] VITALS: Ht 180.3 cm; Wt 85.3 kg
[2019-02-04 20:20] VITALS: BP 137/60
[2019-02-04] MEDS ORDERED: cefTRIAXone 1,000 MG in LIDOCAINE MPF 1% 2.1 ML IM ONE (21:50)
[2019-02-04] MEDS ORDERED: HYDROcodone/APAP 5/325 MG 1 TAB TAB PO ONE (21:50)
[2019-02-04 22:04] VITALS: BP 137/60
== END 2019-02-04 22:31 | disposition home or self-care (01) ==
LOC: MED 20:20
DX: S61.032A Puncture wound without foreign body of left thumb without damage to nail, initial encounter (principal); Z79.899 Other long term (current) drug therapy; W34.010A Accidental discharge of airgun, initial encounter; Y93.89 Activity, other specified; Y92.89 Other specified places as the place of occurrence of the external cause; Y99.8 Other external cause status
CPT/HCPCS: 29130; 73140; 96372; 99283; J0696; J2001

== ENCOUNTER 2019-05-01 17:56 | Emergency (ER) | payer SELFPAY ==
[~2019-05-01] VITALS: Ht 177.8 cm; Wt 81.6 kg
[2019-05-01 18:13] VITALS: BP 135/66
--- NOTE | 2019-05-01 18:26 | NUR ---
PATIENT AMBULATED TO BED 7.
--- NOTE | 2019-05-01 18:40 | NUR ---
C/O PRODUCTIVE COUGH WITH GREEN PHLEM X 9 DAYS. PT ADDS R FLANK PAIN X 8 DAYS DUE TO "KIDNEYS", PER PATIENT. PAIN 02/14. DENIES N/V/D. DENIES DYSURIA. PT ADDS L EYE "BLURRINESS" X YESTERDAY. PT STATES HE WAS RELEASED FROM ALF YESTERDAY. PT ALERT AND AWAKE, AMBULATORY WITH STEADY GAIT, VS STABLE IN TRIAGE. MED HX: ANXIETY
--- NOTE | 2019-05-01 19:06 | NUR ---
REPORT GIVEN TO XIN FARAH, PENDING ERMD TO SEE PT
--- NOTE | 2019-05-01 20:04 | NUR ---
URINE COLLECTED AT THIS TIME
--- NOTE | 2019-05-01 20:04 | NUR ---
PT TAKEN TO XRAY
[2019-05-01 20:44] LABS: APPEARANCE,URINE CLEAR (CLEAR); BILIRUBIN,URINE NEGATIVE (NEGATIVE); BLOOD, URINE NEGATIVE (NEGATIVE); COLOR,URINE YELLOW (YELLOW); LEUKOCYTE ESTERASE ,URINE NEGATIVE (NEGATIVE); NITRITE, URINE NEGATIVE (NEGATIVE); UGLUCOSE NEGATIVE (NEGATIVE)
[2019-05-01 21:35] VITALS: BP 135/66
--- NOTE | 2019-05-01 21:35 | NUR ---
PT DISCHARGED WITH PAPERWORK. EDUCATED PT REGARDING MEDICATIONS AND D/C DIAGNOSIS. PT VERBALIZED UNDERSTANDING. TOLD PT TO FOLLOW UP WITH PCP AND WHEN TO RETURN TO ED. PT AT STABLE CONDITION. ALL QUESTIONS ANSWERED.
== END 2019-05-01 21:35 | disposition home or self-care (01) ==
LOC: MED 17:56
DX: R05 Cough (principal); R10.9 Unspecified abdominal pain; Z87.891 Personal history of nicotine dependence; Z79.899 Other long term (current) drug therapy
CPT/HCPCS: 71046; 81003; 99284

== ENCOUNTER 2019-05-08 23:31 | Emergency (ER) | payer SELFPAY ==
--- NOTE | 2019-05-08 23:47 | NUR ---
PATIENT LEFT WITHOUT BEING SEEN BY DR. CONNELL. NO FURTHER CARE PROVIDED FOR PATIENT.
== END 2019-05-08 23:47 | disposition left against medical advice (07) ==
LOC: MED 23:31
DX: Z53.21 Procedure and treatment not carried out due to patient leaving prior to being seen by health care provider (principal)

== ENCOUNTER 2019-05-09 00:46 | Emergency (ER) | payer SELFPAY ==
[~2019-05-09] VITALS: Ht 177.8 cm; Wt 84.8 kg
[2019-05-09 00:54] VITALS: BP 150/90
--- NOTE | 2019-05-09 00:56 | NUR ---
TO LOBBY A/W BED AMBULATORY
--- NOTE | 2019-05-09 01:45 | NUR ---
PATIENT LEFT WITHOUT BEING SEEN BY DR. CONNELL. NO FURTHER CARE PROVIDED FOR PATIENT.
== END 2019-05-09 01:45 | disposition left against medical advice (07) ==
LOC: MED 00:46
DX: R19.7 Diarrhea, unspecified (principal); Z53.21 Procedure and treatment not carried out due to patient leaving prior to being seen by health care provider

== ENCOUNTER 2019-05-16 22:06 | Emergency (ER) | payer SELFPAY ==
[~2019-05-16] VITALS: Ht 177.8 cm; Wt 85.3 kg
[2019-05-16 22:15] VITALS: BP 144/80
--- NOTE | 2019-05-16 22:18 | NUR ---
TO LOBBY A/W BED AMBULATORY
--- NOTE | 2019-05-17 00:48 | NUR ---
PT AMBULATED TO ER BED 12
--- NOTE | 2019-05-17 00:55 | NUR ---
23/M C/O CONSTANT ANXIETY X 9 DAYS, HEARTBURN, INTERMITTENT PINCHING CHEST PAIN IN DIFFERENT AREAS OF CHEST. DENIES SUIDICAL/HOMOCIDAL IDEATIONS. HX- ANXIETY, HEARTBURN Addendum: 05/17/19 at 0107 by SELENA PT WATCHING MOVIE ON CELLPHONE, WITH GIRLFRIEND AT BEDSIDE
[2019-05-17] MEDS ORDERED: hydrOXYzine 50 MG/ML VIAL IM ONE (01:20)
[2019-05-17] MEDS ORDERED: IBUPROFEN 800 MG TAB PO ONE (01:20)
[2019-05-17] MEDS ORDERED: hydrALAZINE 20 MG/ML VIAL ONE (01:31)
[2019-05-17] MEDS ORDERED: hydrOXYzine HCL 25 MG TAB ONE (01:40)
--- NOTE | 2019-05-17 01:45 | NUR ---
IM HYDROXYZINE SOLN UNAVAILABLE IN HOSPITAL. ONLY PO TABLETS AVAILABLE. DR. CROWDER MADE AWARE. VERBAL ORDER RECEIVED TO ADMINISTER 50 MG PO HYDROXYZINE.
[2019-05-17] MEDS ORDERED: hydrOXYzine HCL 25 MG TAB PO ONE (01:50)
--- NOTE | 2019-05-17 01:50 | NUR ---
MEDICATED WITH 800 MG IBUPROFEN FOR 5/10 CHEST WALL PAIN AND 50 MG PO HYDROXYZINE FOR ANXIETY. WILL REASSESS IN 30 MINS.
--- NOTE | 2019-05-17 01:55 | NUR ---
PT REQUESTING FOOD AND WATER. SANDWICH X 2 AND WATER X 3 PROVIDED.
[2019-05-17 02:55] VITALS: BP 132/76
--- NOTE | 2019-05-17 02:55 | NUR ---
Patient discharged with v/s stable. No longer c/o anxiety or pain. Written and verbal after care instructions given and explained. Patient alert, oriented and verbalized understanding of instructions. Ambulatory with steady gait. All questions addressed prior to discharge. ID band removed. Patient advised to follow up with PMD and when to return to ER. Rx of Motrin and Vistaril given. Patient educated on indication of medication including possible reaction and side effects. Opportunity to ask questions provided and answered.
== END 2019-05-17 02:55 | disposition home or self-care (01) ==
LOC: MED 22:06
DX: F41.9 Anxiety disorder, unspecified (principal); M54.5 Low back pain
CPT/HCPCS: 99284; J3410; J0360

== ENCOUNTER 2019-05-22 02:55 | Emergency (ER) | payer MEDICAID ==
[~2019-05-22] VITALS: Ht 177.8 cm; Wt 81.6 kg
[2019-05-22 02:55] VITALS: BP 139/79
[2019-05-22 03:29] LABS: BASOPHILS # (AUTO) 0.1 K/uL (0.00-0.22); BASOPHILS % (AUTO) 0.7 % (0.0-2.0); EOSINOPHILS % (AUTO) 0.2 % (0.0-4.0); HEMATOCRIT 43.7 % (36-52); HEMOGLOBIN 14.6 g/dL (12.0-18.0); LYMPHOCYTES # (AUTO) 2.4 K/uL (2.0-11.5); LYMPHOCYTES % (AUTO) 31.1 % (20.5-51.1); MEAN CORPUSCULAR HEMOGLOBIN 31 pg (27-31); MEAN CORPUSCULAR HGB CONC 34 g/dL (33-37); MEAN CORPUSCULAR VOLUME 92.9 fL (80-94); MONOCYTES % (AUTO) 12.3 % (1.7-9.3); NEUTROPHILS # (AUTO) 4.4 K/uL (1.8-7.7); NEUTROPHILS % (AUTO) 55.7 % (42.2-75.2); PLATELET COUNT (AUTO) 255 K/uL (140-450); RED CELL DISTRIBUTION WIDTH 14.3 % (11.6-13.7); WHITE BLOOD COUNT (AUTO) 7.8 K/uL (4.8-10.8)
[2019-05-22 03:32] LABS: ANION GAP 14.6 (8-16); CARBON DIOXIDE 26.1 mmol/L (21-32); CREATININE 1.1 mg/dL (0.7-1.3); POTASSIUM 3.7 mmol/L (3.5-5.1)
[2019-05-22] MEDS: KETOROLAC 30 MG/ML VIAL IVP ONE (03:32)
[2019-05-22] MEDS: NACL 0.9% 1,000 ML IV ONE (03:42)
[2019-05-22] MEDS: ALBUTEROL 0.083% 2.5 MG/3 ML NEBU INH ONE (04:00)
[2019-05-22 04:26] LABS: BARBITURATE, URINE NEG. ng/ml (NEG <=200); BENZODIAZEPINE, URINE NEG. ng/mL (NEG <=200); CANNABINOID, URINE NEG. ng/mL (NEG <=50); COCAINE, URINE NEG. ng/mL (NEG <=300); OPIATE, URINE NEG. ng/mL (NEG <=2000); PHENCYCLIDINE SCREEN,URINE NEG. ng/mL (NEG <=25)
[2019-05-22 04:33] VITALS: BP 139/79
== END 2019-05-22 04:33 | disposition home or self-care (01) ==
LOC: MED 02:55
DX: R05 Cough (principal); R07.89 Other chest pain; F17.210 Nicotine dependence, cigarettes, uncomplicated; F12.10 Cannabis abuse, uncomplicated; Z79.899 Other long term (current) drug therapy; Z71.9 Counseling, unspecified
CPT/HCPCS: 36415; 71045; 80048; 80305; 81002; 84484; 85025; 85379; 93005; 94640; 99284; J1885; J7030; J7613; Q0092

== ENCOUNTER 2019-05-23 14:18 | Emergency (ER) | payer MEDICAID, OTHER ==
[~2019-05-23] VITALS: Ht 177.8 cm; Wt 82.6 kg
[2019-05-23 14:24] VITALS: BP 114/65
--- NOTE | 2019-05-23 14:28 | NUR ---
ASSISTED PT TO WAIT IN THE LOBBY.
--- NOTE | 2019-05-23 14:42 | NUR ---
PT TAKEN TO BED 3 WITH STEADY GAIT.
--- NOTE | 2019-05-23 14:57 | NUR ---
23 Y/O M C/O SHORTNESS OF BREAT. OXYGEN LEVEL IS 99%. PT LUGN SOUNDS CLEAR. PT HAS A PRODUCTIVE COUGH X2 DAYS. PT POSITIONED HIGH FOLWERS, MONITOR IN PLACE FOR 02. BED LOWERED, SIDE RAIL X1. FRIEND AT BEDSIDE. VERONICA
[2019-05-23] MEDS ORDERED: ALBUTEROL HFA MDI 90 MCG/ACTUATION 8 GM INH PRN (15:10)
[2019-05-23 15:24] VITALS: BP 121/66
--- NOTE | 2019-05-23 15:24 | NUR ---
Patient discharged with v/s stable. Written and verbal after care instructions given and explained. Patient alert, oriented and verbalized understanding of instructions. Ambulatory with steady gait. All questions addressed prior to discharge. ID band removed. Patient advised to follow up with PMD. Rx of VENTOLIN HFA INHALATION AEROSOL PRN 1-2 INHALATIONS given. Patient educated on indication of medication including possible reaction and side effects. Opportunity to ask questions provided and answered.
== END 2019-05-23 15:24 | disposition home or self-care (01) ==
LOC: MED 14:18
DX: J06.9 Acute upper respiratory infection, unspecified (principal); Z79.899 Other long term (current) drug therapy
CPT/HCPCS: 99283

== ENCOUNTER 2019-05-25 18:50 | Emergency (ER) | payer MEDICAID, OTHER ==
[~2019-05-25] VITALS: Ht 177.8 cm; Wt 82.7 kg
[2019-05-25 19:10] VITALS: BP 129/75
--- NOTE | 2019-05-25 19:22 | NUR ---
AMBULATED TO LOBBY WITH UPRIGHT, STEADY GAIT. IS SEEN PACING BACK AND FORTH. DR. BE MADE AWARE. NO EKG NECESSARY. RECIEVED ORDERS FOR PO ATIVAN 1 MG.
[2019-05-25] MEDS ORDERED: LORazepam 1 MG TAB PO ONE (19:25)
--- NOTE | 2019-05-25 19:35 | NUR ---
MEDICATED WITH 1 MG PO ATIVAN FOR ANXIETY. WILL REASSESS.
--- NOTE | 2019-05-25 20:53 | NUR ---
PT AMBULATED TO ER BED 11
--- NOTE | 2019-05-25 21:30 | NUR ---
C/O OF ANXIETY ATTACK. HEART SOUNDS S1S2 PRESENT. NSR. VSS. A & O X 4. NO RESP DISTRESS NOTED. A & O X4. NO SOB. NO USE OF ACCESSORY MUSCLE. STEADY GAIT. NKA. PMH: ANXIETY.
[2019-05-25 21:55] VITALS: BP 129/75
--- NOTE | 2019-05-25 21:55 | NUR ---
Patient discharged with v/s stable. Written and verbal after care instructions given and explained. Patient alert, oriented and verbalized understanding of instructions. Ambulatory with steady gait. All questions addressed prior to discharge. ID band removed. Patient advised to follow up with PMD. Rx of ZYPRECZA given. Patient educated on indication of medication including possible reaction and side effects. Opportunity to ask questions provided and answered.
[2019-05-25] MEDS ORDERED: OLANZapine 5 MG ODT ONE (22:01)
[2019-05-25] MEDS ORDERED: OLANZapine 2.5 MG TAB ONE (22:12)
[2019-05-26] MEDS ORDERED: OLANZapine 2.5 MG TAB PO ONE (09:00)
== END 2019-05-25 21:55 | disposition home or self-care (01) ==
LOC: MED 18:50
DX: F41.9 Anxiety disorder, unspecified (principal); R07.9 Chest pain, unspecified; F31.9 Bipolar disorder, unspecified; Z79.899 Other long term (current) drug therapy
CPT/HCPCS: 99284

== ENCOUNTER 2019-05-26 09:09 | Emergency (ER) | payer OTHER ==
[~2019-05-26] VITALS: Ht 177.8 cm; Wt 82.6 kg
--- NOTE | 2019-05-26 09:15 | NUR ---
PT AMBULATED TO BED 07, RN EVALUATING AT BEDSIDE.
[2019-05-26 09:18] VITALS: BP 133/87
--- NOTE | 2019-05-26 09:27 | NUR ---
23 Y/O F C/O CHEST PAIN 6/10 LEFT SIDED X 3 DAYS. PAIN DOES NOT RADIATE, DESCRIBED STABBING, OFF AND ON. PT HAS A PRODUCTIVE COUGH, X 3 DAYS. LUNG SOUNDS CLEAR THROUGHOUT ON INSPIRATION/EXPIRATION. PT DENIES N/V. VSS, PT ON MONITOR. PT STATES THE PAIN COULD BE FROM ANXIETY HE IS EXPERIENCING, HASN'T BEEN TAKING HIS MEDICATION, NEEDS REFILS. PT POSITIONED FOR COMFORT, BED LOWERED, SIDE RAIL X1 IN PLACE. NKA
--- NOTE | 2019-05-26 09:30 | NUR ---
DR DUARTE AT BEDSIDE EXAMINING PATIENT.
[2019-05-26] MEDS ORDERED: OLANZapine 2.5 MG TAB PO SCH (09:35)
--- NOTE | 2019-05-26 09:51 | NUR ---
ORDERED FOOD TRAY FOR PATIENT. PT RESTING COMFORTABLY, VSS.
[2019-05-26 10:23] VITALS: BP 133/87
--- NOTE | 2019-05-26 10:24 | NUR ---
Patient discharged with v/s stable. Written and verbal after care instructions given and explained. Patient alert, oriented and verbalized understanding of instructions. Ambulatory with steady gait. All questions addressed prior to discharge. ID band removed. Patient advised to follow up with PMD. Rx of ZYPREXA given. Patient educated on indication of medication including possible reaction and side effects. Opportunity to ask questions provided and answered.
== END 2019-05-26 10:24 | disposition home or self-care (01) ==
LOC: MED 09:09
DX: Z76.0 Encounter for issue of repeat prescription (principal); Z79.899 Other long term (current) drug therapy
CPT/HCPCS: 99283; Q0163

== ENCOUNTER 2019-05-26 19:35 | Emergency (ER) | payer OTHER ==
[~2019-05-26] VITALS: Ht 177.8 cm; Wt 83.0 kg
[2019-05-26 19:35] VITALS: BP 139/68
--- NOTE | 2019-05-26 19:35 | NUR ---
TO BED # 03 AMBULATORY
--- NOTE | 2019-05-26 20:02 | NUR ---
23 YEAR OLD MALE COMPLAINS OF NEEDING A REFILL ON HIS MEDICATIONS. PATIENT STATES HE HAS ANXIETY AND HAS BEEN WALKING AROUND ALL DAY TRYING TO FIND A PHARMACY TO REFILL HIS PRESCRIPTION. PATIENT STATES HE NEEDS A REFILL OF VISTARIL AND XYPREXA. PATIENT ALERT AND ORIENTED, BREATHING EVEN AND UNLABORED, SKIN WARM AND DRY. BED IN LOWEST POSITION, LOCKED,BED RAIL UPX1. PMH - ANXIETY ALLERGIES - BEE STINGS
[2019-05-26] MEDS ORDERED: OLANZapine 2.5 MG TAB PO ONE (20:30)
[2019-05-26] MEDS ORDERED: hydrOXYzine 50 MG/ML VIAL IM ONE (20:30)
[2019-05-26] MEDS ORDERED: hydrOXYzine HCL 25 MG TAB PO ONE (20:40)
[2019-05-26] MEDS ORDERED: OLANZapine 5 MG ODT ONE (20:40)
--- NOTE | 2019-05-26 22:03 | NUR ---
Patient discharged with v/s stable. Written and verbal after care instructions given and explained. Patient verbalized understanding. Ambulatory with steady gait. All questions addressed prior to discharge. Advised to follow up with PMD. PT WAS GIVEN HOMELESS RESOURCE PACKET AND PT SIGNED THE HOMELESS WAIVER. PT WAS ALSO GIVEN INFORMATION TO PCPS IN THE AREA.
== END 2019-05-26 20:20 | disposition home or self-care (01) ==
LOC: MED 19:35
DX: F41.9 Anxiety disorder, unspecified (principal); J44.9 Chronic obstructive pulmonary disease, unspecified; Z76.0 Encounter for issue of repeat prescription; Z59.0 Homelessness; Z79.899 Other long term (current) drug therapy
CPT/HCPCS: 99283; 99284; J3410

== ENCOUNTER 2019-05-30 19:29 | Emergency (ER) | payer OTHER ==
[~2019-05-30] VITALS: Ht 177.8 cm; Wt 78.5 kg
[2019-05-30 19:40] VITALS: BP 118/81
--- NOTE | 2019-05-30 20:23 | NUR ---
PATIENT AMB TO CHAIR WITH STEADY GAIT. ASSESSMENT COMPLETED: BIB SELF WITH REPORTS OF BILATERAL HAND PAIN FOR THE PAST DAY. STATES THAT HIS HANDS STARTED BLEEDING WITH OUT CAUSE. MULTIPLE ABRASIONS SEEN ON TOP OF BILATERAL HANDS WITH DRIED BLOOD. NO ACTIVE BLEEDING AT THIS TIME. PATIENT ALSO STATES THE RING IS STUCK ON HIS LEFT FIFTH FINGER AND HAS BEEN FOR A FEW DAYS. RING SEEN, +CMS ON LEFT FIFTH FINGER.
[2019-05-30 21:16] VITALS: BP 118/81
--- NOTE | 2019-05-30 21:17 | NUR ---
Patient discharged with v/s stable. Written and verbal after care instructions given and explained. Patient alert, oriented and verbalized understanding of instructions. Ambulatory with steady gait. All questions addressed prior to discharge. ID band removed. Patient advised to follow up with PMD. Rx of KEFLEX, BENADRYL, CORTIZONE given. Patient educated on indication of medication including possible reaction and side effects. Opportunity to ask questions provided and answered.
== END 2019-05-30 21:16 | disposition home or self-care (01) ==
LOC: MED 19:29
DX: L25.9 Unspecified contact dermatitis, unspecified cause (principal); J44.9 Chronic obstructive pulmonary disease, unspecified; Z79.899 Other long term (current) drug therapy
CPT/HCPCS: 99283

== ENCOUNTER 2019-05-30 23:07 | Emergency (ER) | payer OTHER ==
[~2019-05-30] VITALS: Ht 177.8 cm; Wt 78.0 kg
[2019-05-30 23:15] VITALS: BP 131/65
--- NOTE | 2019-05-30 23:18 | NUR ---
TO LOBBY A/W BED AMBULATORY
--- NOTE | 2019-05-31 02:21 | NUR ---
PT AMBULATED TO BED 2.
--- NOTE | 2019-05-31 02:25 | NUR ---
23 Y/O MALE C/O LEFT HAND PAIN X TODAY. PT STATES HE HAS A RING ON THE LEFT RING FINGER AND WHATS IT REMOVED. LEFT HAND RING FINGER SHOWS SWELLING AND REDNESS. CAP REFILL < 3. CMS INTACT.VSS. A &O X4. NKA.
[2019-05-31 04:58] VITALS: BP 131/65
== END 2019-05-31 04:58 | disposition home or self-care (01) ==
LOC: MED 23:07
DX: S60.457A Superficial foreign body of left little finger, initial encounter (principal); J44.9 Chronic obstructive pulmonary disease, unspecified; Z79.899 Other long term (current) drug therapy; X58.XXXA Exposure to other specified factors, initial encounter; Y93.89 Activity, other specified; Y92.89 Other specified places as the place of occurrence of the external cause; Y99.8 Other external cause status
CPT/HCPCS: 99283

== ENCOUNTER 2019-05-31 22:32 | Emergency (ER) | payer OTHER ==
[~2019-05-31] VITALS: Ht 177.8 cm; Wt 82.2 kg
[2019-05-31 23:09] VITALS: BP 143/80
[2019-05-31 23:25] VITALS: BP 136/71
--- NOTE | 2019-06-01 01:45 | NUR ---
PATIENT SITTING UP IN LOBBY. NO DISTRESS. NO NEW COMPLAINTS.
[2019-06-01 03:45] VITALS: BP 132/68
--- NOTE | 2019-06-01 03:45 | NUR ---
PATIENT SITTING UP IN CHAIR. NO NEW NEEDS STATED.
--- NOTE | 2019-06-01 05:20 | NUR ---
PATIENT PRESENTS TO ED WITH N/V X2 DAYS. SKIN IS PINK/WARM/DRY; AAOX4 WITH EVEN AND STEADY GAIT; LUNGS CLEAR BL; HR EVEN AND REGULAR; PT DENIES ANY FEVER, CP, SOB, OR COUGH AT THIS TIME; PATIENT STATES PAIN OF 0/10 AT THIS TIME; VSS; PATIENT POSITIONED FOR COMFORT; HOB ELEVATED; BEDRAILS UP X2; BED DOWN. ER MD MADE AWARE OF PT STATUS.
--- NOTE | 2019-06-01 05:22 | NUR ---
PATIENT SLEEPING IN CHAIR. EASY TO WAKE. NO NEW COMPLAINTS AT THIS TIME.
--- NOTE | 2019-06-01 07:29 | NUR ---
PATIENT LEFT WITHOUT BEING SEEN BY DR. Mixon. NO FURTHER CARE PROVIDED FOR PATIENT.
== END 2019-06-01 07:29 | disposition left against medical advice (07) ==
LOC: MED 22:32
DX: R23.8 Other skin changes (principal); Z53.21 Procedure and treatment not carried out due to patient leaving prior to being seen by health care provider
CPT/HCPCS: 99283

== ENCOUNTER 2020-04-21 23:59 | Emergency (ER) | payer OTHER ==
[~2020-04-21] VITALS: Ht 180.3 cm; Wt 85.7 kg
[2020-04-22 00:20] VITALS: BP 150/90
--- NOTE | 2020-04-22 00:23 | NUR ---
TO LOBBY A/W BED AMBULATORY
[2020-04-22] MEDS ORDERED: ZIPRASIDONE MESYLATE 20 MG/ML VIAL IM ONE ×2 (04:45→06:15)
--- NOTE | 2020-04-22 04:52 | NUR ---
PT AMBULATED TO CHAIR AT 0445
--- NOTE | 2020-04-22 07:10 | NUR ---
a/o x4; patient is alert and oriented; breathing is unlabored and symmetrical. denies any pain; gait is steady; skin intact. patient states, " I just want to go home". vss. HOB at 30 degrees. ERMD made aware. Will continue to monitor.
--- NOTE | 2020-04-22 07:20 | NUR ---
Pt report given to SOFI Forrest . Transfer of care at this time.
--- NOTE | 2020-04-22 07:21 | NUR ---
Received report from SOFI Caballero. Transfered care at this time.
--- NOTE | 2020-04-22 07:36 | NUR ---
Per laborer [facility] pt refused complete lab draw, only allowed 2 tubes to be collected at this time.
[2020-04-22 07:41] LABS: BASOPHILS # (AUTO) 0.1 K/uL (0.00-0.22); BASOPHILS % (AUTO) 0.8 % (0.0-2.0); EOSINOPHILS % (AUTO) 0.3 % (0.0-4.0); HEMATOCRIT 44.8 % (36-52); HEMOGLOBIN 15.2 g/dL (12.0-18.0); LYMPHOCYTES # (AUTO) 2.6 K/uL (2.0-11.5); LYMPHOCYTES % (AUTO) 21.4 % (20.5-51.1); MEAN CORPUSCULAR HEMOGLOBIN 32 pg (27-31); MEAN CORPUSCULAR HGB CONC 34 g/dL (33-37); MEAN CORPUSCULAR VOLUME 94.2 fL (80-94); MONOCYTES % (AUTO) 7.9 % (1.7-9.3); NEUTROPHILS # (AUTO) 8.5 K/uL (1.8-7.7); NEUTROPHILS % (AUTO) 69.6 % (42.2-75.2); PLATELET COUNT (AUTO) 288 K/uL (140-450); RED BLOOD CELL COUNT(AUTO) 4.76 MIL/uL (4.20-6.10); RED CELL DISTRIBUTION WIDTH 13.5 % (11.6-13.7); WHITE BLOOD COUNT (AUTO) 12.1 K/uL (4.8-10.8)
--- NOTE | 2020-04-22 07:42 | NUR ---
Telepsych at pt bedside, pt is remaining calm and cooperative.
--- NOTE | 2020-04-22 07:42 | NUR ---
Pt ambulated to bathroom, collected UA.
[2020-04-22 08:25] VITALS: BP 150/90
--- NOTE | 2020-04-22 08:26 | NUR ---
Note santos in EDM - 04/22/20 at 0944 by [facility] Patient does not wish to proceed with medical care recommended by Dr. Cristobal and Dr. Booker. Patient given information related to possible complications, up to and including , which could occur as a result of leaving hospital at this time. Patient verbalizes understanding of risks involved leaving against medical advice. Patient has signed AMA form.
[2020-04-22 08:28] LABS: ALBUMIN 4.5 g/dL (3.4-5.0); ASPARTATE AMINOTRANSFERASE 43 U/L (15-37); CARBON DIOXIDE 27.2 mmol/L (21-32); CHLORIDE 104 mmol/L (98-107); GFR ARICAN-AMERICAN 116 mL/min (>90); GLUCOSE 88 mg/dL (74-106); POTASSIUM 4.2 mmol/L (3.5-5.1); SODIUM SERUM 140 mmol/L (136-145); TOTAL BILIRUBIN 0.6 mg/dL (0.0-1.0); UREA NITROGEN, BLOOD 15 mg/dL (7-18)
[2020-04-22 08:29] LABS: ACETAMINOPHEN < 0.5 ug/ml (10-30); SALICYLATE < 2.8 mg/dL (2.8-20.0)
[2020-04-22 09:06] LABS: CKMB RELATIVE INDEX 0.9 (0.0-2.5); CREATINE KINASE MB 9.2 ng/mL (0-3.6)
--- NOTE | 2020-04-22 09:44 | NUR ---
Patient discharged with v/s stable. Written and verbal after care instructions given and explained. Patient alert, oriented and verbalized understanding of instructions. Ambulatory with steady gait. All questions addressed prior to discharge. ID band removed. Patient advised to follow up with PMD. Rx of vistaril 25mg cap q8h PRn, and albuterol 90mcg inhalation 1 puff q6h PRN given. Patient educated on indication of medication including possible reaction and side effects. Opportunity to ask questions provided and answered.
[2020-04-22 11:26] LABS: BARBITURATE, URINE NEGATIVE ng/ml (NEG <=200); BENZODIAZEPINE, URINE NEGATIVE ng/mL (NEG <=200); CANNABINOID, URINE POSITIVE ng/mL (NEG <=50); COCAINE, URINE NEGATIVE ng/mL (NEG <=300); OPIATE, URINE NEGATIVE ng/mL (NEG <=2000); PHENCYCLIDINE SCREEN,URINE NEGATIVE ng/mL (NEG <=25)
== END 2020-04-22 09:44 | disposition home or self-care (01) ==
LOC: MED 23:59
DX: F41.9 Anxiety disorder, unspecified (principal); J44.9 Chronic obstructive pulmonary disease, unspecified; Z79.899 Other long term (current) drug therapy
CPT/HCPCS: 36415; 80053; 80305; 82550; 82553; 85025; 99283; G0480; G0482

== ENCOUNTER 2021-08-25 23:11 | Emergency (ER) | payer OTHER ==
[~2021-08-25] VITALS: Ht 180.3 cm; Wt 74.8 kg
[2021-08-25 23:19] VITALS: BP 115/62
--- NOTE | 2021-08-25 23:26 | NUR ---
Patient ambulated to bed 2.
--- NOTE | 2021-08-25 23:28 | NUR ---
Patient came to ER. C/O other x today. Patient denies pain, no N/V/D, no SOB.
--- NOTE | 2021-08-26 00:27 | NUR ---
ermd a bedside for examination
--- NOTE | 2021-08-26 01:04 | NUR ---
Patient appears to be resting comfortably in bed. Vital Signs within normal limits. Respirations even and unlabored.
[2021-08-26 01:52] VITALS: BP 115/62
== END 2021-08-26 01:52 | disposition home or self-care (01) ==
LOC: MED 23:11
DX: J44.9 Chronic obstructive pulmonary disease, unspecified (principal); Z76.5 Malingerer [conscious simulation]
CPT/HCPCS: 99281; 99283

== ENCOUNTER 2021-10-22 14:59 | Emergency (ER) | payer OTHER ==
[~2021-10-22] VITALS: Ht 175.3 cm; Wt 74.8 kg
[2021-10-22 15:01] VITALS: BP 121/70
[2021-10-22] MEDS ORDERED: KETOROLAC 30 MG/ML VIAL IM ONE (15:25)
[2021-10-22] MEDS ORDERED: IBUP-2213 PO (16:19)
[2021-10-22] MEDS ORDERED: ALBU0.0912 IH (16:19)
--- NOTE | 2021-10-22 16:38 | NUR ---
Patient given written and verbal discharge instructions and verbalizes understanding. Given copies of tests performed during visit. Patient is awake, alert and oriented. Ambulatory with steady gait. Refuses offer of longterm placement. Given list of available shelters in surrounding areas. sandwhich and juice provided.
== END 2021-10-22 16:38 | disposition home or self-care (01) ==
LOC: MED 14:59
DX: M25.552 Pain in left hip (principal); J44.9 Chronic obstructive pulmonary disease, unspecified; F17.210 Nicotine dependence, cigarettes, uncomplicated; Z98.890 Other specified postprocedural states; Z79.899 Other long term (current) drug therapy; Z79.1 Long term (current) use of non-steroidal anti-inflammatories (NSAID); Z79.891 Long term (current) use of opiate analgesic
CPT/HCPCS: 99283

== ENCOUNTER 2021-12-08 18:33 | Emergency (ER) | payer OTHER ==
[~2021-12-08] VITALS: Ht 180.3 cm; Wt 82.1 kg
[~2021-12-08 18:33] MED LIST changes: +ALBU0.0912 IH; +IBUP-2213 PO
[2021-12-08 18:43] VITALS: BP 118/87
[2021-12-08] MEDS ORDERED: ALBUTEROL SULFATE/IPRATROPIU 3 ML SOL IH ONE (18:45)
[2021-12-08] MEDS ORDERED: ALBUTEROL 0.083% 2.5 MG/3 ML NEBU INH ONE (18:45)
[2021-12-08] MEDS ORDERED: predniSONE 20 MG TAB PO ONE (18:45)
--- NOTE | 2021-12-08 18:45 | NUR ---
26 y/o M BIB self from home c/o shortness of breath since this AM, anxiety, and chronic left sided body pain. Patient A&Ox4, ambulatory, reports recently discharged from [facility] and has been dealing with "a lot of anxiety." Patient states 2 puffs of Albuterol inhaler @ 1140 today without relief to symptoms. Patient denies dizziness, MOLINA, N/V/D, fever, chills. 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 Lung sounds slightly diminished lower lobes. Bed locked in lowest position, side rails x 1. PMH: asthma, anxiety, psych d/o Meds: albuterol, xanax, zyprexa NKDA
--- NOTE | 2021-12-08 18:45 | NUR ---
Patient ambulated to bed 11 steady/even gait.
--- NOTE | 2021-12-08 18:49 | NUR ---
RT at bedside
--- NOTE | 2021-12-08 19:00 | NUR ---
Dr. Leary is evaluating patient at bedside
--- NOTE | 2021-12-08 19:17 | NUR ---
Report and transfer of care given to SOFI Foster
[2021-12-08] MEDS ORDERED: PRED20TA5 PO (19:25)
[2021-12-08] MEDS ORDERED: ACET-8386 PO (19:25)
[2021-12-08] MEDS ORDERED: IBUP-2213 PO (19:25)
[2021-12-08] MEDS ORDERED: ATA25 PO (19:25)
[2021-12-08] MEDS ORDERED: ONDA8TAB87 PO (19:25)
[2021-12-08] MEDS ORDERED: ALBU0.0912 INH (19:25)
[2021-12-08 19:54] VITALS: BP 123/89
--- NOTE | 2021-12-08 20:01 | NUR ---
Patient discharged with v/s stable. Written and verbal after care instructions given and explained. Patient alert, oriented and verbalized understanding of instructions. Ambulatory with steady gait. All questions addressed prior to discharge. ID band removed. Patient advised to follow up with PMD. Rx of NORCO, PROVENTIL, ATARAX, IBUPROFEN, ZOFRAN, AND DELTASONE given. Patient educated on indication of medication including possible reaction and side effects. Opportunity to ask questions provided and answered. VSS, A/OX4, UNLABORED BREATHING, AMBULATORY, AND CALM DEMEANOR.
== END 2021-12-08 20:01 | disposition home or self-care (01) ==
LOC: MED 18:33
DX: J45.909 Unspecified asthma, uncomplicated (principal); R11.0 Nausea; M79.10 Myalgia, unspecified site; F41.9 Anxiety disorder, unspecified; F17.200 Nicotine dependence, unspecified, uncomplicated; Z98.890 Other specified postprocedural states; Z79.899 Other long term (current) drug therapy
CPT/HCPCS: 94640; 99283; J7512; J7613

== ENCOUNTER 2021-12-11 10:51 | Emergency (ER) | payer OTHER ==
[~2021-12-11] VITALS: Ht 177.8 cm; Wt 81.6 kg
[~2021-12-11 10:51] MED LIST changes: +ACET-8386 PO; +ALBU0.0912 INH; +ATA25 PO; +ONDA8TAB87 PO; +PRED20TA5 PO
--- NOTE | 2021-12-11 10:52 | NUR ---
PATIENT BIBA TO LOBBY.
[2021-12-11 10:54] VITALS: BP 123/85
--- NOTE | 2021-12-11 11:12 | NUR ---
PT FOUND SMOKING AND CIGARETTE AND PACING OUTSIDE THE LOBBY. AMBULATED TO BED 6 WITH STEADY GAIT
--- NOTE | 2021-12-11 11:24 | NUR ---
PT AMBULATED TO BATHROOM WITH STEADY GAIT
[2021-12-11] MEDS ORDERED: LORazepam 1 MG TAB PO ONE (11:45)
[2021-12-11] MEDS ORDERED: NACL 0.9% 1,000 ML IV ONE (11:45)
--- NOTE | 2021-12-11 12:15 | NUR ---
PT REPORTS " LEG IS SEIZING" AND ATTEMPTED TO WALK AROUND. MD MADE AWARE
[2021-12-11] MEDS ORDERED: MIDAZOLAM 5 MG/5 ML VIAL IV ONE (12:20)
--- NOTE | 2021-12-11 13:38 | NUR ---
PT AT REST AND SLEEPING. NO VISIBLE DISTRESS. RESPIRATIONS EVEN AND UNLABORED. BED AT LOWEST POSITION, BED RAILS UP X2
[2021-12-11 14:35] VITALS: BP 111/52
[2021-12-11 15:48] LABS: BILIRUBIN,URINE NEGATIVE (NEGATIVE); BLOOD, URINE NEGATIVE (NEGATIVE); LEUKOCYTE ESTERASE ,URINE 1+ (NEGATIVE); NITRITE, URINE NEGATIVE (NEGATIVE); UGLUCOSE NEGATIVE (NEGATIVE)
[2021-12-11 15:57] LABS: APPEARANCE,URINE HAZY (CLEAR)
[2021-12-11 16:24] LABS: COLOR,URINE STRAW (YELLOW); RBC,URINE NONE SEEN /HPF (0-5); WBC,URINE NONE SEEN /HPF (0-5)
== END 2021-12-11 14:35 | disposition home or self-care (01) ==
LOC: MED 10:51
DX: F41.9 Anxiety disorder, unspecified (principal); E86.0 Dehydration; J45.909 Unspecified asthma, uncomplicated; J44.9 Chronic obstructive pulmonary disease, unspecified; F17.200 Nicotine dependence, unspecified, uncomplicated; F15.90 Other stimulant use, unspecified, uncomplicated; Z72.89 Other problems related to lifestyle
CPT/HCPCS: 81001; 87086; 96361; 96374; 99283; J2250; J7030

== ENCOUNTER 2021-12-14 16:06 | Emergency (ER) | payer OTHER ==
[~2021-12-14] VITALS: Ht 180.3 cm; Wt 74.8 kg
[2021-12-14 16:15] VITALS: BP 133/78
--- NOTE | 2021-12-14 16:54 | NUR ---
[facility] EVALUATING PT AT A.
--- NOTE | 2021-12-14 17:00 | NUR ---
[place] FROM STRE[address] C/O LEGS PAIN X 5 DAYS. SEEN BY [facility] FOR WEAKNESS AT 12.25 PM TODAY. DENIES TO HURT HIMSELF OR OTHERS. NO HEARING VOICES. SEEN HERE 12/11/21 FOR ANXIETY.PMH: ASTHMA, DEPRESSION.
--- NOTE | 2021-12-14 18:15 | NUR ---
ATTEMPTED TO D/C PT BY [facility]. NOT FOUND IN LOBBY/OUTSIDE. PT LEFT WITHOUT D/C PAPERS
== END 2021-12-14 18:15 | disposition home or self-care (01) ==
LOC: MED 16:06
DX: R53.1 Weakness (principal); J45.909 Unspecified asthma, uncomplicated; J44.9 Chronic obstructive pulmonary disease, unspecified
CPT/HCPCS: 99283

== ENCOUNTER 2021-12-14 19:48 | Emergency (ER) | payer OTHER ==
[~2021-12-14] VITALS: Ht 180.3 cm; Wt 74.8 kg
--- NOTE | 2021-12-14 19:55 | NUR ---
PT OFFLAODED TO CHAIR C
[2021-12-14 19:58] VITALS: BP 133/85
--- NOTE | 2021-12-14 21:59 | NUR ---
PT STATES " I JUST WANT TO LEAVE." PT REQUESTED FOOD WHICH WAS PROVIDED. PT LWBS
== END 2021-12-14 21:59 | disposition left against medical advice (07) ==
LOC: MED 19:48
DX: M79.662 Pain in left lower leg (principal); M79.661 Pain in right lower leg; F41.9 Anxiety disorder, unspecified; Z53.21 Procedure and treatment not carried out due to patient leaving prior to being seen by health care provider

== ENCOUNTER 2024-02-23 18:58 | Emergency (ER) | payer OTHER ==
[~2024-02-23] VITALS: Ht 182.9 cm; Wt 72.6 kg
[~2024-02-23 18:58] MED LIST changes: -ACET-8386 PO; +ACET-8905 PO
[2024-02-23 19:27] VITALS: BP 126/86; PULSE 88; RESP 20; TEMP 97.2
[2024-02-23 19:34] VITALS: BP 126/86; PULSE 88; RESP 20; TEMP 97.2
== END 2024-02-23 19:34 | disposition left against medical advice (07) ==
LOC: MED 18:58
DX: Z76.0 Encounter for issue of repeat prescription (principal); Z53.21 Procedure and treatment not carried out due to patient leaving prior to being seen by health care provider